=== PATIENT | male | born 1965 ===

== ENCOUNTER 2022-06-10 05:00 | Day surgery (SDC) | payer OTHER | END 2022-06-10 12:50 | disposition home or self-care (01) | LOC: AMB-ENDOS 05:00 | PROVIDERS: ATTEND Surgery | DX: D12.5 Benign neoplasm of sigmoid colon (principal); K57.90 Diverticulosis of intestine, part unspecified, without perforation or abscess without bleeding; Z20.822 Contact with and (suspected) exposure to COVID-19; I10 Essential (primary) hypertension; E03.9 Hypothyroidism, unspecified ==